=== PATIENT | male | born 1960 | race Caucasian/White ===

== ENCOUNTER 2025-04-07 10:45 | Outpatient (CLI) | payer OTHER | END 2025-04-07 10:52 | disposition home or self-care (01) | LOC: RAD 10:45 | PROVIDERS: ATTEND Orthopaedic Surgery | DX: M20.22 Hallux rigidus, left foot (principal) ==

== ENCOUNTER 2025-10-13 07:47 | Outpatient (CLI) | payer OTHER ==
[2025-10-13 09:35] LABS: BASO % 0.5 % (0.1-1.2); EOS # 0.14 (0.04-0.54); EOS % 1.4 % (0.7-7.0); LYMPH # 2.25 (1.18-3.74); LYMPH % 23.2 % (19.3-53.1); MEAN PLATELET VOLUME 11.80 fl (9.4-12.4); MONO # 0.97 (0.24-0.82); MONO % 10.0 % (4.7-12.5); NEUT # 6.25 (1.56-6.13); NEUT % 64.6 % (34.0-71.1); RED CELL DISTRIBUTION WIDTH 13.9 % (11.6-14.4)
[2025-10-13 09:54] LABS: URINE APPEARANCE Clear; URINE BILIRRUBIN Negative (NEGATIVE); URINE BLOOD Negative; URINE COLOR Yellow; URINE GLUCOSE Negative (NEGATIVE); URINE KETONE Negative (NEGATIVE); URINE LEUKOCYTE Negative; URINE NITRATE Negative; URINE UROBILINOGEN 0.2 E.U./dl
[2025-10-13 09:56] LABS: URINE BACTERIA 28.8 uL (0.0-1933); URINE CAST 1.90 uL (0.0-1.40); URINE EPITHELIAL CELLS 9.6 uL (0.0-38.8); URINE WBC 4.6 uL (0.0-23.2)
[2025-10-13 10:00] LABS: URINE PROTEIN 300 (NEGATIVE); URINE RBC 1.1 uL (0.0-20.8)
[2025-10-13 10:03] LABS: COL EPI 168 SECONDS (82-175)
[2025-10-13 10:10] LABS: INR 0.99
[2025-10-13 10:17] LABS: ALT/SGPT 24.0 U/L (12-78); AST/SGOT 19.0 U/L (15-37); BILIRUBIN TOTAL 0.46 mg/dL (0.3-1.2); BUN CREA RATIO 23.0 (7.0-25.0); CREATININE SERUM 1.3 mg/dL (0.70-1.30); GFR 55.4; GLOBULINA 3.5 G/DL (2.4-3.5); GLUCOSE FASTING 77.0 mg/dL (65-100); OSMOLALITY SERUM 296.0 MOSM/KG (275-295)
== END 2025-10-13 07:48 | disposition home or self-care (01) ==
LOC: RAD 07:47
PROVIDERS: ATTEND Orthopaedic Surgery
DX: D64.9 Anemia, unspecified (principal); E88.89 Other specified metabolic disorders; D68.8 Other specified coagulation defects; N39.0 Urinary tract infection, site not specified; Z22.322 Carrier or suspected carrier of Methicillin resistant Staphylococcus aureus; E11.9 Type 2 diabetes mellitus without complications; Z76.89 Persons encountering health services in other specified circumstances